=== PATIENT | female | born 1985 | race Caucasian/White ===

== ENCOUNTER → 2019-01-09 | Outpatient (CLI) | payer OTHER ==
[~2019-01-09] MED LIST: BUPR-133 PO; BUPR-474 PO; CETI-169 PO; CITA-157 PO; FLU60VIA41 IM; LEVO50TA86 PO; TRAZ50TA52 PO
== END ==
LOC: RESP 20:48
PROVIDERS: ATTEND Family Medicine
DX: G47.33 Obstructive sleep apnea (adult) (pediatric) (principal); G47.61 Periodic limb movement disorder